=== PATIENT | female | born 1945 | race Caucasian/White ===

== ENCOUNTER 2018-05-26 15:58 | Emergency (ER) | payer MEDICARE, OTHER ==
[2018-05-26 17:30] LABS: BASOPHIL % 0.6 % (0.0-0.4); Basophil (Absolute #) 0.04 (0-0.4); Eosinophil % 2.5 % (0.00-5.0); Eosinophil (Absolute #) 0.18 (0-0.5); Granulocyte Absolute (ANC) 3.81 (1.4-6.9); Granulocytes % 53.4 % (36.0-66.0); Hematocrit 37.1 % (35-47); Lymphocyte (Absolute #) 2.64 (1.0-4.6); Mean Cell Volume 99.7 fl (78-100); Mean Corpuscular Hgb Concent. 32.3 g/dl (32-36); Mean Platelet Volume 9.6 fl (6-9.5); Monocyte (Absolute #) 0.46 (0.0-1.3); Monocytes % 6.5 % (0.0-12.0); Platelet Count 323 K/mm3 (150-450); Red Blood Count 3.72 M/mm3 (4.1-5.4); Red Cell Distribution Width 16.7 % (11.5-14.0); White Blood Count 7.1 K/mm3 (4.0-10.5)
[2018-05-26 17:34] LABS: Mean Corpuscular Hemoglobin 32.2 pg (26-32)
[2018-05-26 17:47] LABS: ANION GAP 15.3 MEQ/L (5-15); BILIRUBIN,TOTAL 0.2 mg/dL (0.2-1.3); Calcium 8.9 mg/dL (8.4-10.2); Creatinine 1 1.23 mg/dL (0.52-1.04); Potassium 3.4 mmol/L (3.5-5.1); Total Protein 7.1 g/dL (6.3-8.2)
[2018-05-26 17:57] VITALS: BP 161/89; PULSE 88; O2SAT 100
[2018-05-26] MEDS ORDERED: Norco 10/325 MG Tablet PO ONE (18:23)
[2018-05-26] MEDS ORDERED: Norco 10/325 MG Tablet ONE (18:30)
--- NOTE | 2018-05-26 19:28 | ERPHSYRPT ---
- History of Present Illness Source: patient, family Exam Limitations: no limitations Patient Subjective Stated Complaint: states left foot has been swelling for a few weeks and is having pain. is being treated at [facility] but states isn't getting any better. also having swelling to right foot. Triage Nursing Assessment: bottom of left foot is red with dry ulcer noted to heel. also has open area to 2nd toe with small amt white drainage. faint pedal pulse felt in left foot. Physician History: Pt is a 72 y/o female with a h/o PVD, with stent in the L leg, and h/o DVTs and PEs, and she is on Xarelto for it. Pt has known PVD of the L foot, and she presented today to the ER, because of severe pain and swelling of the toes on the L, and some purulent discharge from the nail bed on the middle toe on L. Pt states, has known CKD, and was told not to do CTA because of risk of ESRD and HD. Method of Injury: unknown Occurred: other (PVD that is known.) Quality: constant, aching, burning, throbbing Severity of Pain-Max: severe Severity of Pain-Current: severe Lower Extremities Pain: foot: left (swelling, and burning with pain.) Allergies/Adverse Reactions: adhesive tape Allergy (Verified 05/26/18 16:39) fluoxetine [From Prozac] Allergy (Verified 05/26/18 16:39) Home Medications: Albuterol 8 gm Mdi Hfa [Ventolin Hfa MDI] 8 gm IH QIDPRN PRN 05/26/18 [ History] Amlodipine Besylate 5 mg PO DAILY 05/26/18 [History] Budesonide/Formoterol Fumarate [Symbicort 160-4.5 Mcg Inhaler] 6 gm IH BID 05/26 [History] Gabapentin 600 mg PO HS 05/26/18 [History] Losartan Potassium 50 mg PO DAILY 05/26/18 [History] Mirtazapine 15 mg PO BID 05/26/18 [History] Omeprazole 40 mg PO DAILY 05/26/18 [History] Rivaroxaban [Xarelto] 20 mg PO DAILY 05/26/18 [History] Temazepam 15 mg [Restoril 15 MG] 15 mg PO HS 05/26/18 [History] Tizanidine HCl 4 mg PO TID 05/26/18 [History] Tramadol HCl 50 mg [Ultram 50 mg] 50 mg PO BIDPRN PRN 05/26/18 [History] Hx Tetanus, Diphtheria Vaccination/Date Given: No Hx Influenza Vaccination/Date Given: No Hx Pneumococcal Vaccination/Date Given: Yes - Review of Systems Constitutional: No Fever, No Chills Eyes: No Symptoms Ears, Nose, & Throat: No Symptoms Respiratory: No Cough, No Dyspnea Cardiac: No Chest Pain, No Edema, No Syncope Abdominal/Gastrointestinal: No Abdominal Pain, No Nausea, No Vomiting, No Diarrhea Genitourinary Symptoms: No Dysuria Musculoskeletal: Other (Foot pain, swelling and purulent discharge on the L foot ) Skin: No Rash Neurological: No Dizziness, No Focal Weakness, No Sensory Changes Psychological: No Symptoms Endocrine: No Symptoms All Other Systems: Reviewed and Negative - Past Medical History Pertinent Past Medical History: Yes Neurological History: Stroke ENT History: Cataracts Cardiac History: Hypertension, Peripheral Vascular Disease Respiratory History: Asthma Musculoskeletal History: Arthritis, Osteoarthritis, Rheumatoid Arthritis GI Medical History: Hernia, Ulcer History: Renal Disease Psycho-Social History: Anxiety, Depression Other Medical History: stent left leg hiatal hernia - Past Surgical History Past Surgical History: Yes Female Surgical History: Hysterectomy, Mastectomy Other Surgical History: stent left leg - Social History Smoking Status: Former smoker Exposure to second hand smoke: Yes Drug Use: marijuana Patient Lives Alone: Yes - Female History Hx Now: No - Nursing Vital Signs Nursing Vital Signs: Initial Vital Signs Temperature 98.9 F 05/26/18 16:14 Pulse Rate 85 05/26/18 16:14 Respiratory Rate 16 05/26/18 16:14 Blood Pressure 155/66 05/26/18 16:14 O2 Sat by Pulse Oximetry 94 L 05/26/18 16:14 Pain Scale Pain Intensity 9 - Physical Exam General Appearance: alert Eyes, Ears, Nose, Throat Exam: moist mucous membranes Neck Exam: non-tender, supple Cardiovascular/Respiratory Exam: chest non-tender, normal breath sounds, regular rate/rhythm, no respiratory distress Gastrointestinal/Abdominal Exam: non-tender, guarding Back Exam: normal inspection, No vertebral tenderness Foot Exam: left foot: ecchymosis, infection, pain, soft tissue tenderness, swelling Neuro/Tendon Exam: normal sensation, normal motor functions Mental Status Exam: alert, oriented x 3, cooperative Skin Exam: normal color, warm, dry SpO2: 100 Oxygen Delivery: Room Air - Course Nursing assessment & vital signs reviewed: Yes Ordered Tests: Active Orders 24 hr Category Date Time Status BLOOD CULTURE Stat Lab 05/26/18 17:20 Received CBC W DIFF Stat Lab 05/26/18 17:20 Completed CMP Stat Lab 05/26/18 17:20 Completed CULTURE,WOUND Stat Lab 05/26/18 17:00 Received Lactic Acid Stat Lab 05/26/18 16:46 Completed Medication Summary Discontinued Medications Generic Name Dose Route Start Last Admin Trade Name Seth PRN Reason Stop Dose Admin Hydrocodone Bitart/Acetaminophen 1 tab 05/26/18 18:23 05/26/18 18:31 Happy 10/325 Mg Tablet PO 05/26/18 18:24 1 tab STAT ONE Administration Hydrocodone Bitart/Acetaminophen Confirm 05/26/18 18:30 Happy 10/325 Mg Tablet Administered 05/26/18 18:31 Dose 1 tab .ROUTE .STK-MED ONE Lab/Rad Data: Laboratory Result Diagrams 05/26/18 17:20 05/26/18 17:20 Laboratory Results 05/26/18 05/26/18 05/26/18 Range/Units 17:20 17:20 16:46 WBC 7.1 (4.0-10.5) K/mm3 RBC 3.72 L (4.1-5.4) M/mm3 Hgb 12.0 (12.0-16.0) gm/dl Hct 37.1 (35-47) % MCV 99.7 (78-100) fl MCH 32.2 H (26-32) pg MCHC 32.3 (32-36) g/dl RDW 16.7 H (11.5-14.0) % Plt Count 323 (150-450) K/mm3 MPV 9.6 H (6-9.5) fl Gran % 53.4 (36.0-66.0) % Eos # (Auto) 0.18 (0-0.5) Absolute Lymphs (auto) 2.64 (1.0-4.6) Absolute Monos (auto) 0.46 (0.0-1.3) Lymphocytes % 37.0 (24.0-44.0) % Monocytes % 6.5 (0.0-12.0) % Eosinophils % 2.5 (0.00-5.0) % Basophils % 0.6 (0.0-0.4) % Absolute Granulocytes 3.81 (1.4-6.9) Basophils # 0.04 (0-0.4) Sodium 145 (137-145) mmol/L Potassium 3.4 L (3.5-5.1) mmol/L Chloride 109 H (98-107) mmol/L Carbon Dioxide 24 (22-30) mmol/L Anion Gap 15.3 H (5-15) MEQ/L BUN 28 H (7-17) mg/dL Creatinine 1.23 H (0.52-1.04) mg/dL Estimated GFR 45.6 ML/MIN Glucose 111 H (74-106) mg/dL Lactic Acid 1.3 (0.4-2.0) Calcium 8.9 (8.4-10.2) mg/dL Total Bilirubin 0.20 (0.2-1.3) mg/dL AST 19 (14-36) U/L ALT 17 (0-35) U/L Alkaline Phosphatase 117 (38-126) U/L Serum Total Protein 7.1 (6.3-8.2) g/dL Albumin 4.0 (3.5-5.0) g/dL - Progress Progress: unchanged Progress Note: 05/26/18 19:30 Pt with PVD, was advised to be transfered to where her vascular surgeon is working, [facility]. I talked to Vascular surgeon and hospitalist. vascular surgeon refused to accept the pt, secondary to non compliance in the past, missing multiple appointment and refusing to do CT angio. I explained it to the pt and her son. The pt decided to leave AM. - Departure Time of Disposition: 19:30 Departure Disposition: AMA Clinical Impression: Left foot pain Condition: Stable Critical Care Time: No Referrals: DOCTOR,NO FAMILY [Primary Care Provider] -
== END 2018-05-26 19:22 | disposition left against medical advice (07) ==
LOC: ED 15:58
DX: M79.672 Pain in left foot (principal); M79.675 Pain in left toe(s); Z79.899 Other long term (current) drug therapy; Z86.79 Personal history of other diseases of the circulatory system
CPT/HCPCS: 36415; 80053; 83605; 85025; 87040; 87070; 87077; 87186; 99283; A9270-GY